=== PATIENT | female | born 1965 | race Caucasian/White ===

== ENCOUNTER → 2018-07-23 | Outpatient (CLI) | payer BC ==
--- NOTE | 2018-07-23 17:04 | KCIC ---
EXAM: MRI RIGHT ANKLE/HINDFOOT DATE: 07/23/2018 3:30 PM CLINICAL INDICATION: Right ankle pain. Lateral ankle joint pain COMPARISON: radiograph 10/25/2012. TECHNIQUE: Multiplanar, multisequence MR imaging of the right ankle was performed without IV contrast. FINDINGS: Tendons: The medial flexor tendons are intact without tenosynovitis. The peroneus brevis is intact, normal in signal and morphology. Mild tenosynovitis is seen about the peroneus longus just beyond the fibular tip. Just proximal to the posterior knee is there is increased linear signal within the peroneus longus, likely short segment interstitial versus split-type tear. The extensor tendons are intact, normal in signal and morphology. Mild tenosynovitis is seen about the extensor digitorum longus. The Achilles tendon is normal in signal and morphology, intact. Trace retrocalcaneal bursal fluid physiologic. Trace thickening Kager of the central band of the plantar fascia with trace associated calcaneal edema equivocal for plantar fasciitis. There is diffuse fatty atrophy of the abductor digiti minimal mild changes seen with Baxters neuritis. Ligaments: The anterior talofibular ligament is intact but diminutive, likely chronic tear. The posterior talofibular and calcaneofibular ligaments are intact. The syndesmotic ligaments are intact. The deltoid ligament is intact. The spring ligament and ligaments of the sinus tarsi are intact. On this marginal evaluation the Lisfranc ligament, intact. Sinus Tarsi intertarsal tunnel are normal, without mass lesion or edema pattern. Articular Cartilage/joint line: Articular cartilage at the tibiotalar joint preserved. No osteochondral lesion of the talar dome. Foci of subchondral edema within the posterior subtalar joint and regions of chondromalacia. Degenerative changes at the tarsometatarsal joints are seen with regions of subchondral edema and cystic change. Marrow edema within the cuboid, without discrete fracture line, possibly reactive or stress reaction. Subcutaneous soft tissue swelling overlying the lateral malleolus. IMPRESSION: 1. Linear signal within the peroneus longus just proximal to the os peroneus may represent focal interstitial tear or short segment split-type tear. Mild associated tenosynovitis. 2. The anterior talofibular ligament is diminutive, likely from chronic tear. 3. Soft tissue swelling seen overlying the lateral malleolus. 4. Mild tenosynovitis about the extensor digitorum longus tendon at the level of the talonavicular joint without discrete abnormality of the extensor digitorum longus. 5. Marrow edema within the cuboid laterally, possibly contusion. No discrete fracture line is seen. 6. Diffuse fatty atrophy of the abductor digiti minimi, may be seen with Baxters neuritis. Electronically signed by: Ameya Flowers MD (07/23/2018 5:01 PM) [id number]
== END | disposition home or self-care (01) ==
LOC: KCIC MRI 14:50
PROVIDERS: ATTEND Orthopaedic Surgery
DX: M65.871 Other synovitis and tenosynovitis, right ankle and foot (principal); M94.271 Chondromalacia, right ankle and joints of right foot; R60.0 Localized edema
CPT/HCPCS: 73721